=== PATIENT | male | born 1950 | race Caucasian/White ===

== ENCOUNTER 2019-02-18 08:54 | Day surgery (SDC) | payer MEDICARE ==
[2019-02-18] MEDS ORDERED: PROPOFOL 60 ML (10:05)
== END 2019-02-18 12:47 | disposition home or self-care (01) ==
LOC: GIL 08:54
DX: Z12.11 Encounter for screening for malignant neoplasm of colon (principal); K64.8 Other hemorrhoids; K57.30 Diverticulosis of large intestine without perforation or abscess without bleeding; D12.6 Benign neoplasm of colon, unspecified; I10 Essential (primary) hypertension; E78.5 Hyperlipidemia, unspecified; Z79.82 Long term (current) use of aspirin
CPT/HCPCS: 45385; 88305